=== PATIENT | female | born 1955 | race Asian ===

== ENCOUNTER 2021-07-24 19:02 | Emergency (ER) | payer MEDICARE, MEDICAID, SELFPAY ==
[2021-07-24 19:20] VITALS: BP 116/72; PULSE 87; RESP 16; TEMP 37.1; O2SAT 99
--- NOTE | 2021-07-24 19:23 | ED.NAVMDI ---
HPI - Nausea/Vomiting/Diarrhea General Chief complaint: Nausea/Vomiting/Diarrhea Stated complaint: diarrhea,vomiting Time Seen by Provider: 07/24/21 19:23 Source: patient, RN notes reviewed and old records reviewed Mode of arrival: ambulatory Limitations: no limitations and language barrier History of Present Illness HPI Narrative: 65 year old female presents to express care with complaints of diarrhea for one week duration with episodes X2 today of nausea and vomiting.Son is at bedside and is interpreting for patient, her primary language is [place] Patient reports that she has a lot of belching and has pain around umbilicus area on palpation which is mainly when she has diarrhea or vomiting. Patient reports that today is the first day she has had nausea and vomiting but has had diarrhea all week, denies any known exposure to ill contact. Son states that they did attend a wedding a little over a week ago but everyone had to be COVID tested and negative to go to wedding. Son reports that she has had COVID and flu vaccinations.Patient denies any fevers, no blood noted in stools, are watery, no recent antibiotic use.Patient reports that she took TUMS she has a lot of burping. MD elicited complaint: nausea, vomiting and diarrhea Onset (ago): week(s) (1 week diarrhea, 1 day nausea and vomiting) Description of vomiting: food contents Description of diarrhea: watery Associated nausea: Yes Associated abdominal pain: Yes Location of pain: periumbilical Related Data Home Medications Medication Instructions Recorded Confirmed cholecalciferol (vitamin D3) 1,250 mcg PO WEEKLY 07/24/21 07/24/21 Allergies Allergy/AdvReac Type Severity Reaction Status Date / Time No Known Allergies Allergy Verified 07/24/21 19:27 Review of Systems Review of Systems: CONSTITUTIONAL: Denies fever, chills, or sweats. EYES: Denies visual changes, redness, or discharge. ENT: Denies rhinorrhea, congestion, sore throat, or otalgia. CARDIOVASCULAR: Denies chest pain, palpitations, or edema. RESPIRATORY: Denies cough or dyspnea. GASTROINTESTINAL: Positive for mid abdominal pain, nausea, vomiting, or diarrhea. GENITOURINARY: Denies dysuria or hematuria. SKIN: Denies rash or itching. MUSCULOSKELETAL: Denies back pain, joint pain, or myalgia. NEUROLOGIC: Denies headache, numbness, or weakness. PSYCHIATRIC: Denies anxiety or depression. All systems reviewed & are unremarkable except as noted in HPI and below PMFSH Past Medical History Medical History (Updated 07/24/21 @ 20:00 by Kiesha Mason NP) Elevated cholesterol Hypertension Vitamin D deficiency Surgical History Surgical History (Updated 07/24/21 @ 22:15 by Kiesha Mason NP) No history of previous surgery Social History Social History (Updated 07/24/21 @ 19:58 by Kiesha Mason NP) Smoking status: Never smoker Alcohol intake: never Substance use: never Living arrangements: with family Gender identity (if verbalized by the patient): Female Comments At time of signature, agree with nursing past medical, surgical, social and family history. There is no relevant family history pertinent to the presenting complaint Exam Narrative: GENERAL: Well-appearing, well-nourished, and in no acute distress. HEAD: Normocephalic, atraumatic. EYES: PERRLA and EOMI. ENT: Nares clear, no rhinorrhea or epistaxis. Mucous membranes moist.TM's normal throat pink with no lesions or exudates or tonsil enlargement NECK: Supple.no lymphadenopathy CHEST: Clear to auscultation. No respiratory distress.SAO2 99% on room air HEART: Regular rate and rhythm. No murmur heard. Normal peripheral pulses. ABDOMEN: Soft, tender above umbilicus area described as cramping,negative for McBurney point tenderness,nondistended, hyperactive bowel sounds. EXTREMITIES: Normal range of motion. No edema. SKIN: Warm, dry, no rash. NEURO: No focal deficits. Alert and oriented x3. Course Course Level of Care: Express Care
== END 2021-07-24 19:55 | disposition home or self-care (01) ==
PROVIDERS: Emergency Provider Registered Nurse; PCP Family Medicine
DX: K52.9 Noninfective gastroenteritis and colitis, unspecified (principal); R10.33 Periumbilical pain; E78.00 Pure hypercholesterolemia, unspecified; I10 Essential (primary) hypertension; E55.9 Vitamin D deficiency, unspecified
CPT/HCPCS: 81003; 87086; 99203; G0463

== ENCOUNTER 2021-09-30 16:59 | Emergency (ER) | payer MEDICARE, MEDICAID, SELFPAY ==
--- NOTE | ~2021-09-30 | XR_ITS ---
EXAMINATION: XR toe 4th RT min 2V DATE: 09/30/2021 17:20 INDICATION: Right fourth toe injury. TECHNIQUE: 4 views of right fourth toe were obtained. COMPARISON: None. FINDINGS: Bone alignment is normal. No fracture. 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 Joint spaces are normal in the fourth digit. IMPRESSION: 1. No fracture. Reviewed, dictated and finalized at location A. IMPRESSION: 1. No fracture.
[2021-09-30 17:10] VITALS: BP 111/65; PULSE 71; RESP 18; TEMP 36.5; O2SAT 98
--- NOTE | 2021-09-30 17:12 | ED.LOWEXIN ---
HPI - Extremity Injury (Lower) General Chief Complaint: Extremity Injury, Lower Stated Complaint: Rt foot injury Time Seen by Provider: 09/30/21 17:13 Source: patient Mode of arrival: ambulatory Limitations: no limitations History of Present Illness HPI Narrative: 66-year-old female presents with son with complaint of right fourth toe pain. Patient has had pain for about 6 days. She was kicking soccer ball [id number] with granddaughter and kicked right foot against couch. She has swelling and bruising. She is ambulatory with steady gait. She is taking Tylenol as needed for pain. Stating today that pain is worse. Range of motion and distal neurovascularly intact. All systems reviewed and negative except as noted above. Related Data Home Medications Medication Instructions Recorded Confirmed amlodipine [Norvasc] 5 mg PO DAILY 09/30/21 09/30/21 rosuvastatin [Crestor] 5 mg PO DAILY 09/30/21 09/30/21 Allergies Allergy/AdvReac Type Severity Reaction Status Date / Time No Known Allergies Allergy Verified 09/30/21 17:13 Review of Systems Review of Systems: CONSTITUTIONAL: Denies fever, chills, or sweats. EYES: Denies visual changes, redness, or discharge. ENT: Denies rhinorrhea, congestion, sore throat, or otalgia. CARDIOVASCULAR: Denies chest pain, palpitations, or edema. RESPIRATORY: Denies cough or dyspnea. GASTROINTESTINAL: Denies abdominal pain, nausea, vomiting, or diarrhea. GENITOURINARY: Denies dysuria or hematuria. SKIN: Denies rash or itching. MUSCULOSKELETAL: Reports pain and swelling to right fourth toe. NEUROLOGIC: Denies headache, numbness, or weakness. PSYCHIATRIC: Denies anxiety or depression. All other systems reviewed are negative, except as documented in HPI. [facility] Past Medical History Medical History (Updated 09/30/21 @ 17:28 by Christine Woodson NP) Elevated cholesterol Hypertension Vitamin D deficiency Surgical History Surgical History (Updated 07/24/21 @ 22:15 by Kiesha Mason NP) No history of previous surgery Social History Social History (Updated 07/24/21 @ 19:58 by Kiesha Mason NP) Smoking status: Never smoker Alcohol intake: never Substance use: never Gender identity (if verbalized by the patient): Female Comments At time of signature, agree with nursing past medical, surgical, social and family history. There is no relevant family history pertinent to the presenting complaint. Exam Narrative: GENERAL: This is a well-nourished, well-developed patient, in no apparent distress. HEAD: normocephalic, atraumatic. EYES: PERRL. Sclera clear/white. Vision is grossly intact. EARS: External ears normal NOSE: External nose normal NECK: Neck supple, non-tender without lymphadenopathy, masses or thyromegaly. CARDIOVASCULAR: Regular rate and rhythm without murmurs, gallops, or rubs. RESPIRATORY: Clear to auscultation. Breath sounds equal bilaterally. No wheezes, rales, or rhonchi. SKIN: warm, Dry, intact with no suspicious lesions or rash, good texture and turgor. NEURO: awake, alert, and oriented to person, place and time. There were no obvious focal neurologic abnormalities. EXTREMITIES: Normal range of motion to all extremities. There is bruising and swelling to right fourth toe. Tenderness to middle phalanx. Range of motion intact. There are no signs of infection. No nail damage. Course Course Level of Care: Express Care Visit Vital Signs Vital signs: Vital Signs Temperature 36.5 C 09/30/21 17:10 Pulse Rate 71 09/30/21 17:10 Respiratory Rate 18 09/30/21 17:10 Blood Pressure 111/65 09/30/21 17:10 Pulse Oximetry 98 09/30/21 17:10 Temperature 36.5 C 09/30/21 17:10 Pulse Rate 71 09/30/21 17:10 Respiratory Rate 18 09/30/21 17:10 Blood Pressure 111/65 09/30/21 17:10 Pulse Oximetry 98 09/30/21 17:10 Reviewed MDM - Extremity Injury (Lower) MDM Narrative Medical decision making narrative: Discussed x-ra
== END 2021-09-30 17:30 | disposition home or self-care (01) ==
PROVIDERS: Emergency Provider Nurse Practitioner Family
DX: S90.121A Contusion of right lesser toe(s) without damage to nail, initial encounter (principal); W22.03XA Walked into furniture, initial encounter; Y93.89 Activity, other specified; S93.504A Unspecified sprain of right lesser toe(s), initial encounter; E78.00 Pure hypercholesterolemia, unspecified; I10 Essential (primary) hypertension
CPT/HCPCS: 73660; 99213; G0463